=== PATIENT | female | born 1995 | race Caucasian/White ===

== ENCOUNTER 2017-09-13 12:06 | Emergency (ER) | payer OTHER ==
[~2017-09-13] VITALS: Ht 175.3 cm; Wt 134.4 kg
[2017-09-13 12:38] VITALS: Ht 175.3 cm; Wt 134.4 kg
[2017-09-13 14:33] VITALS: BP 135/85
== END 2017-09-13 14:33 | disposition home or self-care (01) ==
LOC: ED 12:06
DX: M54.5 Low back pain (principal)
CPT/HCPCS: Q0162

== ENCOUNTER 2018-11-27 16:39 | Emergency (ER) | payer SELFPAY ==
[~2018-11-27] VITALS: Ht 175.3 cm; Wt 129.9 kg
[2018-11-27 16:45] VITALS: BP 121/72; Ht 175.3 cm; Wt 129.9 kg
== END 2018-11-27 18:05 | disposition home or self-care (01) ==
LOC: ED 16:39
DX: S83.91XA Sprain of unspecified site of right knee, initial encounter (principal); Z87.442 Personal history of urinary calculi; X58.XXXA Exposure to other specified factors, initial encounter; Y93.89 Activity, other specified; Y92.89 Other specified places as the place of occurrence of the external cause; Y99.8 Other external cause status

== ENCOUNTER 2019-07-09 20:12 | Emergency (ER) | payer OTHER ==
[~2019-07-09] VITALS: Ht 175.3 cm; Wt 172.4 kg
[2019-07-09 20:26] VITALS: Ht 175.3 cm; Wt 172.4 kg
[2019-07-09 21:23] LABS: BASOPHIL % 0.5 % (0-2); PLATELET COUNT 347 x10^3mcL (130-400); RED CELL DISTRIBUTION WIDTH 12.4 % (11.5-14.5)
[2019-07-09 21:33] LABS: CALCIUM 9.4 mg/dL (8.5-10.1); CARBON DIOXIDE 28.9 mmol/L (21-32); CHLORIDE SERUM 102 mmol/L (98-107); CREATININE SERUM 0.7 mg/dL (0.6-1.0); GFR1 > 60 mL/min; GLUCOSE SERUM 69 mg/dL (74-106); SODIUM SERUM 139 mmol/L (136-145)
[2019-07-09 21:37] LABS: ALBUMIN 3.9 g/dL (3.4-5.0); ALKALINE PHOSPHATASE 85 U/L (46-116); ALT/SGPT 33 U/L (14-59); AMYLASE 41 U/L (25-115); AST/SGOT 13 U/L (15-37); BILIRUBIN TOTAL 0.2 mg/dL (0.20-1.00); LIPASE 244 IU/L (73-393); TOTAL PROTEIN, SERUM 7.8 g/dL (6.4-8.2)
[2019-07-09 23:33] VITALS: BP 149/85
== END 2019-07-09 23:33 | disposition home or self-care (01) ==
LOC: ED 20:12
PROVIDERS: Emergency Medicine
DX: J40 Bronchitis, not specified as acute or chronic (principal); R50.9 Fever, unspecified
CPT/HCPCS: 87804; C9113; J2405; J7030

== ENCOUNTER 2019-08-24 19:58 | Emergency (ER) | payer OTHER ==
[~2019-08-24] VITALS: Ht 175.3 cm; Wt 134.3 kg
[2019-08-24 20:09] VITALS: Ht 175.3 cm; Wt 134.3 kg
[2019-08-24 21:43] LABS: BASOPHIL % 0.5 % (0-2); PLATELET COUNT 370 x10^3mcL (130-400); RED CELL DISTRIBUTION WIDTH 12.4 % (11.5-14.5)
[2019-08-24 22:03] LABS: CALCIUM 8.4 mg/dL (8.5-10.1); CARBON DIOXIDE 27.2 mmol/L (21-32); CHLORIDE SERUM 102 mmol/L (98-107); CREATININE SERUM 0.7 mg/dL (0.6-1.0); GFR1 > 60 mL/min; GLUCOSE SERUM 87 mg/dL (74-106); SODIUM SERUM 138 mmol/L (136-145)
[2019-08-24 22:10] LABS: ALBUMIN 3.9 g/dL (3.4-5.0); ALKALINE PHOSPHATASE 80 U/L (46-116); ALT/SGPT 26 U/L (14-59); AST/SGOT 12 U/L (15-37); BILIRUBIN TOTAL 0.3 mg/dL (0.20-1.00); TOTAL PROTEIN, SERUM 8.1 g/dL (6.4-8.2)
[2019-08-24 22:25] LABS: UA SPECIFIC GRAVITY >=1.030 (1.005-1.035); microscopic required? YES; urine erythrocyte 3+ (NEGATIVE)
[2019-08-24 22:30] LABS: FREE T4 0.95 ng/dL (0.76-1.46)
[2019-08-24 23:37] VITALS: BP 125/78
== END 2019-08-24 23:37 | disposition home or self-care (01) ==
LOC: ED 19:58
PROVIDERS: Emergency Medicine; Specialist
DX: N39.0 Urinary tract infection, site not specified (principal); N83.202 Unspecified ovarian cyst, left side; F17.210 Nicotine dependence, cigarettes, uncomplicated; Z87.442 Personal history of urinary calculi
CPT/HCPCS: 36415; 84439; J1885